=== PATIENT | female | born 1970 | race Caucasian/White ===

== ENCOUNTER 2017-08-06 10:25 | Day surgery (SDC) | payer OTHER ==
[~2017-08-06 10:25] MED LIST: CLINDAMYCIN 600 MG/50 ML D5W IVPB IVPB; LACTATED RINGER'S 1,000 ML IV
[2017-08-06] MEDS ORDERED: CEFAZOLIN 2 GM/50 ML (PMX) 50 ML IVPB (11:00)
[2017-08-06 12:21] LABS: ADD MAN DIFF? NO
[2017-08-06 12:27] LABS: INR 0.89; PROTIME 12.1 Sec (11.9-14.9); PT RATIO 0.9
[2017-08-06 12:28] LABS: PARTIAL THROMBOPLASTIN TIME 27.9 Sec (25.0-35.0)
[2017-08-06 12:36] LABS: BASOPHIL # 0.1 10^3/ul (0.0-0.1); BASOPHILS % 0.9 % (0.0-2.0); EOSINOPHILS # 0.1 10^3/ul (0.0-0.5); EOSINOPHILS % 2.3 % (0.0-7.0); HEMATOCRIT 38.2 % (37.0-47.0); HEMOGLOBIN 13.6 g/dl (12.0-16.0); LYMPHOCYTES # 2.4 10^3/ul (0.8-2.9); LYMPHOCYTES % 41.9 % (15.0-51.0); MEAN CORPUSCULAR HEMOGLOBIN 30.3 pg (29.0-33.0); MEAN CORPUSCULAR HGB CONC 35.6 g/dl (32.0-37.0); MEAN CORPUSCULAR VOLUME 85.1 fl (82.0-101.0); MEAN PLATELET VOLUME 11.2 fl (7.4-10.4); MONOCYTE # 0.5 10^3/ul (0.3-0.9); NEUTROPHIL # 2.6 10^3/ul (1.6-7.5); NEUTROPHILS % 46.5 % (39.0-77.0); PLATELET COUNT 193 10^3/UL (140-415); RED BLOOD COUNT 4.49 10^6/ul (4.20-5.40)
[2017-08-06 12:36] LABS: WHITE BLOOD COUNT 5.7 10^3/ul (4.8-10.8)
[2017-08-06] MEDS ORDERED: DIPHENHYDRAMINE 50 MG INJ IV (16:30)
[2017-08-06] MEDS ORDERED: OXYCODONE/ACETAMINOPHEN (5/325) TAB PO (16:30)
[2017-08-06] MEDS ORDERED: LABETALOL HCL 20MG INJ IV (16:30)
[2017-08-06] MEDS ORDERED: FENTAnyl 50 MCG/ML VIAL IV (16:30)
[2017-08-06] MEDS ORDERED: MEPERIDINE 25 MG INJ IV (16:30)
[2017-08-06] MEDS ORDERED: HYDROmorphONE (0.2 MG/ML) 10ML SYG IV (16:30)
[2017-08-06] MEDS ORDERED: hydrALAzine 20 MG INJ IV (16:30)
[2017-08-06] MEDS ORDERED: ONDANSETRON 4 MG INJ IV (16:30)
[2017-08-06] MEDS ORDERED: LIDOCAINE 2% (SDV) 5 ML INJ (16:47)
[2017-08-06] MEDS ORDERED: PROPOFOL 20 ML (16:47)
[2017-08-06] MEDS ORDERED: MIDAZOLAM 1 MG/ML 2 ML INJ (16:47)
[2017-08-06] MEDS ORDERED: METOCLOPRAMIDE 10 MG INJ (17:14)
[2017-08-06] MEDS ORDERED: DEXAMETHASONE 4 MG/ML 1 ML INJ (17:14)
[2017-08-06] MEDS ORDERED: ONDANSETRON 4 MG INJ (17:14)
[2017-08-06] MEDS ORDERED: FAMOTIDINE 20 MG INJ (17:14)
[2017-08-06] MEDS ORDERED: PHENYLephrine (100 MCG/ML) 5ML SYG (17:27)
[2017-08-06] MEDS ORDERED: FENTAnyl 50 MCG/ML VIAL (17:27)
[2017-08-06] MEDS ORDERED: EPHEDrine SULFATE 50 MG/5 ML SYG (17:28)
[2017-08-06] MEDS: KETOROLAC 30 MG INJ IM (18:11)
[2017-08-06] MEDS: DOXYCYCLINE 100 MG TAB PO (18:12)
== END 2017-08-06 18:46 | disposition home or self-care (01) ==
LOC: SDS 10:25
DX: N95.0 Postmenopausal bleeding (principal)
CPT/HCPCS: 58120; 84703; 85025; 85610; 85730; 88305